=== PATIENT | female | born 1955 | race Caucasian/White ===

== ENCOUNTER 2022-07-10 03:50 | Inpatient (IN) | payer MEDICARE ==
[~2022-07-10] VITALS: Ht 157.5 cm; Wt 163.8 kg
[2022-07-10] VITALS (8 sets, daily range): BP systolic 81–118; BP diastolic 61–92
[2022-07-10] MEDS ORDERED: NYSTRIT TOP (11:01)
[2022-07-10] MEDS ORDERED: FURO80 PO (11:01)
[2022-07-10] MEDS ORDERED: METF500 PO (11:02)
[2022-07-10] MEDS ORDERED: ELIQUIS5 M2 PO (11:02)
[2022-07-10] MEDS ORDERED: SPIR25 PO (11:03)
[2022-07-10] MEDS ORDERED: DILT120ERA PO (11:03)
[2022-07-10] MEDS ORDERED: GLIM4 PO (11:04)
[2022-07-10] MEDS ORDERED: SOTO80 PO (11:04)
[2022-07-10] MEDS ORDERED: FURO40 PO (11:05)
[2022-07-10 13:55] LABS: Alanine Aminotransfer (ALT/SGP 21 U/L (12-78); Albumin, Blood 2.6 g/dL (3.4-5.0); Albumin/Globulin Ratio 0.7 (0.8-1.8); Alk Phos 135 U/L (50-136); Anion Gap Unable to Calculate mmol/L (6-16); Aspartate Aminotrans (AST/SGOT 16 U/L (12-37); Bilirubin, Total 2.8 mg/dL (0.1-1.0); Blood Urea Nitrogen 23 mg/dL (8-24); Bun/Creatinine Ratio 31.8 (12.0-20.0); Calcium, Blood 8.8 mg/dL (8.5-10.1); Chloride, Blood 85 mmol/L (98-108); Creatinine, Blood 0.72 mg/dL (0.40-1.00); Globulin, Blood 3.5 g/dL (2.2-4.0); Glomerular Filtration Rate 92 (60-); Glucose, Blood 252 mg/dL (70-99); Potassium, Blood 3.1 mmol/L (3.5-5.5); Sodium, Blood 131 mmol/L (136-145); Total Protein, Blood 6.1 g/dL (6.4-8.2)
[2022-07-10 13:57] LABS: CO2, Blood >45 mmol/L (21-32)
--- NOTE | 2022-07-10 15:01 | NUR ---
Patient direct admit from [facility]. Patient is AOx4, able to make needs known. Full body edema, pitting +2 BLE. Alvares placed by ER in [facility]. Patient is bedrest at this time, therapy met with patient & to get background info. Home med rec completed. Flomax given today for bladder spasms. Diabetic, controlled with oral medications. HR Afib, sustaining 140s, IV Lopressor given. Lab called critical Co2 of >45, reported to MD orders to get STAT VBGs, results pending. Vitals sytable, oxygen sats stable on 3l NC.
[2022-07-10 15:10] LABS: Base Excess Venous 24.5 mmol/L; Bicarbonate Venous 45.4 mmol/L (24.0-30.0); PCO2 Venous 62.5 mmHg (38-42); pH Blood Venous 7.49 (7.34-7.37)
--- NOTE | 2022-07-10 15:33 | NUR ---
1520 ASSUMED OF PATIENT. RN AT BEDSIDE PLACING POWERGLIDE
--- NOTE | 2022-07-10 16:51 | NUR ---
[address] [facility] WYMAN AND ORDERS RECEIVED FOR IV METOPROLOL. VS CHECKED PRIOR TO ADMINISTRATION AND NOTIFIED OF PATIENT BLOOD PRESSURE. ORDERS RECEIVED TO HOLD METOPROLOL AND TRANSFER TO PCU. PT REPORTS BLADDER SPASMS, PERKINS CATHETER CHECKED AND IS DRAINING PRISCILLA URINE
--- NOTE | 2022-07-10 17:35 | NUR ---
1730 to u 16 via bariatric bed accompanied by
--- NOTE | 2022-07-10 19:26 | NUR ---
TRANSFER SUMMARY: DAVID WAS TRANSFERRED TO PCU FROM MEDICAL FLOOR REPORT RECIEVED. PATIENT HAD INCREASED HR WITH RHYTHM OF AFIB WITH RVR, NOT CANIDATE FOR SOTALOL PER HOSPITALIST, PLEASE SEE NOTE. PATIENT STARTED ON CARDIZEM WITH INCREASE AFTER 15 MINUTES, PATIENT ARRIVED IN THE 150'S AND ENDING SHIFT IS 110'S -140'S. PATIENT ON BASELINE 2L VIA MASK, FOR COMFORT. PERKINS CATHETER CHANGED WITH STERILE TECHNIQUE. INSERTION WAS VERY TRAUMATIC AT [place] AND WAS A DIFFICULT INSERTION, WHICH LED THIS RN TO PLACE A CATHETER VERSUS PROTOCOL'D MULTIPLE STRAIGHT CATHS PATIENT WOULD RECIEVE MORE HARM THAN CAUSE, AND DUE TO GOLD BEACH AND PATIENT REPORT OF NO URINE OUTPUT OF SIGNIFICANCE IN 2 DAYS PRIOR PATIENT ENCOURAGED AND ENDORSED PREFERENCE OF PERKINS OVER MULTIPLE STRAIGHT CATHS. OBSERVED AND ENGANGED IN PLACEMENT WERE 2 OTHER HOUSEKEEPER CHILD CARE'S WITH SIMILAR THOUGHT AND PLAN OF ACTION. U/A SENT AT SHIFT END. PATIENT BLADDER SCAN WAS VERY DIFFICULT AND UNSURE OF AMOUNT OUT OF ALL SCANS ROUGHLY ESTIMATED OF 30-590 mL. POTENTIALLY FALSE REPORT, HOWEVER PATIENT HAS BEEN GIVEN THE LASIX, INCREASED URINE OUTPUT. CARDIZEM IS RUNNING AT 10 PATIENT DENIES CHEST PAIN PRESSURE OR SOB AT REST. SOME DYSPNEA WITH EXERTION, PAIN, ANXIETY. PATIENT AT BEDSIDE. BLAKE CARE PREFORMED MULTIPLE TIMES BEFORE AND AFTER INSERTION OF NEW PERKINS. CONCERNS AND QUESTIONS RELAYED TO NIGHT RN OF ELECTROLYTE REPLACEMENT AND THIS TREE SCOUT INFORMED LAB TO DELAY CHEM 8 UNTIL AFTER ALL K+ HAS BEEN GIVEN. WILL CONTINUE TO MONITOR UNTIL SHIFT CHANGE.
[2022-07-10 19:47] LABS: Source, Urine Foley catheter
[2022-07-10 19:54] LABS: Appearance, Urine Clear (Clear); Bilirubin, Urine Neg (Neg); Blood, Urine 4+ (Neg); Color, Urine Yellow (P-Yellow); Glucose Qualitative, Urine Neg (Neg); Ketones, Urine Neg (Neg); Leukocyte Esterase, Urine 1+ (Neg); Nitrite, Urine Neg (Neg); Protein, Urine 2+ (Neg); Urobilinogen, Urine 1+ (Normal)
[2022-07-10 20:04] LABS: Bacteria Many /hpf; Granular Casts 0-2 /lpf (0); Red Blood Cells, Urine 25-50 /hpf (0-2); Squamous Epithelial Cells Few /hpf (Few)
[2022-07-10 22:41] LABS: Bun/Creatinine Ratio 30.5 (12.0-20.0); Calcium, Blood 8.5 mg/dL (8.5-10.1); Creatinine, Blood 0.82 mg/dL (0.40-1.00); Potassium, Blood 3.5 mmol/L (3.5-5.5)
[2022-07-11 05:16] LABS: BASOPHILS ABSOLUTE AUTO 0.02 K/mm3 (0.00-0.23); BASOPHILS PERCENT AUTO 0 % (0-2); EOSINOPHILS ABSOLUTE AUTO 0.05 K/mm3 (0.00-0.68); EOSINOPHILS PERCENT AUTO 1 % (0-6); Hematocrit 34.1 % (33.0-51.0); Hemoglobin 10.6 g/dL (11.5-16.0); IMMATURE GRAN ABSOLUTE AUTO 0.04 K/mm3 (0.00-0.10); IMMATURE GRAN PERCENT AUTO 1 % (0-1); LYMPHOCYTES ABSOLUTE AUTO 1.79 K/mm3 (0.84-5.20); LYMPHOCYTES PERCENT AUTO 23 % (21-46); MONOCYTES ABSOLUTE AUTO 0.83 K/mm3 (0.16-1.47); MONOCYTES PERCENT AUTO 10 % (4-13); Mean Corpuscular HGB 29.9 pg (26.0-34.0); Mean Corpuscular HGB Conc 31.1 g/dL (31.5-36.5); Mean Corpuscular Volume 96 fL (80-100); Mean Platelet Volume 11.1 fL (9.1-12.4); NEUTROPHILS ABSOLUTE AUTO 5.22 K/mm3 (1.96-9.15); NEUTROPHILS PERCENT AUTO 66 % (41-73); NRBC ABSOLUTE 0.03 K/mm3 (0.00-0.02); NRBC Auto 0.4 /100 WBC (0.0-0.2); Platelet Count 208 K/mm3 (150-400); RDW Coefficient Variation 20.4 % (11.7-14.2); RDW Standard Deviation 71.3 fL (35.1-46.3); Red Blood Cell Count 3.55 M/mm3 (3.80-5.20); White Blood Cell Count 7.95 K/mm3 (4.00-11.30)
[2022-07-11 06:02] LABS: Bun/Creatinine Ratio 32.4 (12.0-20.0); Calcium, Blood 8.5 mg/dL (8.5-10.1); Creatinine, Blood 0.8 mg/dL (0.40-1.00); Potassium, Blood 3.3 mmol/L (3.5-5.5)
--- NOTE | 2022-07-11 06:55 | NUR ---
SHIFT SUMMARY PATIENT ALERT AND ORIENTED X4. HAD OCCASIONAL SHORTNESS OF BREATH WITH EXERTION. PATIENT ON 2 LITERS O2 WHILE AWAKE AND 4 WHILE SLEEPING TO MAINTAIN SPO2 >90%. PATIENT DENIES HAVING ANY CHEST PAIN. BLOOD PRESSURE STABLE. PATIENT CONTINUES ON CARDIZEM DRIP AT 10, HEART RATE NOW AVERAGING IN LOW 100'S. NO ACUTE ISSUES NOTED OVERNIGHT. WILL CONTINUE TO MONITOR. CALL LIGHT WTIHIN REACH.
[2022-07-11 07:30] VITALS: BP 116/89
[2022-07-11 11:34] VITALS: BP 100/72
--- NOTE | 2022-07-11 16:06 | NUR ---
SHIFT SUMMARY PATIENT ALERT AND ORIENTED. BEDREST DUE TO WEAKNESS, OBESITY, AND SEVERE GENERALIZED EDEMA. STARTED SHIFT ON 10 MG/HR DILTIAZEM GTT, TITRATED DOWN TO 5 MG/HR AT 0900, PO STARTED AT THAT TIME, SEE EMAR. GTT STOPPED AT 1200, HR SLOWLY TRENDED UP AGAIN TO 110-120. REQUIRING OXYGEN VIA MASK DUE TO MOUTH BRAETHING AT 3L. SPO2 IN MID 90S. CHEM BGS HIGH IN 200 AND 300S. LONG-ACTING STARTED THIS AM AND COVERED PER SHORT ACTING SLIDING SCALE. TOLERATING SMALL AMOUNT OF ADA DIET AND ORAL LIQUIDS. UP TO RECLINER WITH LIFT, WORKED WITH PT/OT ON EXERCISES IN CHAIR. ATTENTIVE AT BEDSIDE. EPRKINS PATENT AND DRAINING DARK RED URINE, PER REPORT PERKINS PLACEMENT FOR ACUTE RETENTION WAS TRAUMATIC. ECHO PENDING THIS AFTERNOON. REPORT GIVEN TO HUI OJYCE RN AT 1550.
[2022-07-11 17:59] VITALS: BP 97/74
[2022-07-11 21:20] VITALS: BP 104/83
[2022-07-11 23:10] VITALS: BP 101/87
[2022-07-12 03:32] VITALS: BP 93/79
[2022-07-12 04:14] LABS: Bun/Creatinine Ratio 34.1 (12.0-20.0); Calcium, Blood 8.6 mg/dL (8.5-10.1); Creatinine, Blood 0.88 mg/dL (0.40-1.00); Potassium, Blood 3.6 mmol/L (3.5-5.5)
--- NOTE | 2022-07-12 06:05 | NUR ---
SHIFT SUMMARY PATIENT ALERT AND ORIENTED X4. PATIENT ANXIOUS ABOUT HER CURRENT HOSPITAL COURSE AND HOW SHE PHYSICALLY FEELS. PATIENT REPORTS SHE GETS SHORT OF BREATH EASIER WITH MINIMAL EXERTION. EDEMA IS NOTED TO BE INCREASED IN ALL EXTREMITES. BLOOD PRESSURE STABLE. HEART RATE AVERAGING IN 110'S-120'S. SOME SLIGHT ST DEPRESSION NOTED ON TELEMETRY, PATIENT CONTINUES IN AFIB. WILL CONTINUE TO MONITOR. CALL LIGHT WITHIN REACH.
[2022-07-12 08:45] VITALS: BP 114/83
--- NOTE | 2022-07-12 09:52 | NUR ---
IV ON RIGHT WRIST WAS REMOVED. IT WAS NO LONGER PATENT. 22G CATHETER WAS INTACT. NO REDNESS, SWELLING, OR TENDERNESS NOTED.
[2022-07-12 11:59] VITALS: BP 84/54
--- NOTE | 2022-07-12 12:00 | NUR ---
Heart rate is elevated 120-140 while working with PT/OT. She is sitting up in recliner, RR 22 and on 3 l/min of oxygen, eating lunch. States that her breathing is a little harder after this morning's activity, but getting better. Blood pressure noted low; she received Toprol XL 50 mg this morning as well as diuretics. Urine output so far much improved; has put out 550 CC. Heart rate at rest, while eating is 127-133 bpm, atrial fibrillation.
[2022-07-12 12:17] VITALS: BP 90/64
--- NOTE | 2022-07-12 12:18 | NUR ---
Pt c/o cramping in her hands. STarted just after working with therapy this morning.
--- NOTE | 2022-07-12 12:23 | NUR ---
Call to Dr. Leung about pt's cramping in her hands, diuresis, and current change in vital signs.
[2022-07-12 14:56] VITALS: BP 129/115; BP 97/85
[2022-07-12 15:27] LABS: Bun/Creatinine Ratio 35.9 (12.0-20.0); Calcium, Blood 8.6 mg/dL (8.5-10.1); Creatinine, Blood 0.86 mg/dL (0.40-1.00); Potassium, Blood 3.3 mmol/L (3.5-5.5)
--- NOTE | 2022-07-12 18:06 | NUR ---
Repositioned using ceiling lift to center of bed, and up higher with HOB elevated for dinner. Pt is sitting up in bed, eating dinner. IV potassium and magnesium infusing via powerglide. Potassium infusion slowed and running concurrently with NS to decrease the pain at the side, which helped. Heart rate is 106-115 bpm, atrial fibrillation. Pt is eating slowly as she does get dyspneic with the activity. Spo2 93% on 3 l/min n.c. delivery. PT states that she uses 2 l/min of O2 at home, at all times. Very large amount of urine output via Alvares. Urine is very light clear yellow.
[2022-07-12 20:58] VITALS: BP 99/83
[2022-07-13] VITALS (10 sets, daily range): BP systolic 75–108; BP diastolic 62–90
--- NOTE | 2022-07-13 06:36 | NUR ---
SHIFT SUMMARY PATIENT ALERT AND ORIENTED X4. EDEMA IMPROVING, URINE OUTPUT GREATLY INCREASED WITH URINE NOW A PALE YELLOW. VITAL SIGNS STABLE, HEART RATE AFIB IN 90'S TO LOW 100'S, NO COMPLAINTS OF CHEST PAIN. PATIENT WAS ON 3 LITERS VIA NASAL CANULA OVERNIGHT. NO ACUTE ISSUES NOTED. CALL LIGHT WITHIN REACH.
[2022-07-13 06:45] LABS: Magnesium, Blood 1.8 mg/dL (1.6-2.4)
[2022-07-13 06:55] LABS: Anion Gap Unable to Calculate mmol/L (6-16); Blood Urea Nitrogen 30 mg/dL (8-24); Bun/Creatinine Ratio 36.1 (12.0-20.0); Calcium, Blood 8.8 mg/dL (8.5-10.1); Chloride, Blood 84 mmol/L (98-108); Creatinine, Blood 0.83 mg/dL (0.40-1.00); Glomerular Filtration Rate 77 (60-); Glucose, Blood 122 mg/dL (70-99); Potassium, Blood 2.9 mmol/L (3.5-5.5); Sodium, Blood 132 mmol/L (136-145)
[2022-07-13 06:57] LABS: CO2, Blood >45 mmol/L (21-32)
[2022-07-13 18:05] LABS: Hematocrit 35.3 % (33.0-51.0); Hemoglobin 11.1 g/dL (11.5-16.0)
[2022-07-13 18:24] LABS: Bun/Creatinine Ratio 37.2 (12.0-20.0); Calcium, Blood 8.5 mg/dL (8.5-10.1); Creatinine, Blood 0.78 mg/dL (0.40-1.00); Potassium, Blood 3.2 mmol/L (3.5-5.5)
--- NOTE | 2022-07-13 18:35 | NUR ---
PT SUMMARY: PT'S BP HAS BEEN SOFT 80-90'S WITH MAP STAYED ABOVE 70'S, HRR STIL AFIB AT 110'S TACHS UP TO 120'S WITH EXERTION, ON 2L OF O2 VIA NC SATS ABOVE 95%, AFEBRILE. PT ALERT AND ORIENTED X4, GETS ANXIOUS ESPECIALLY UPON WAKING UP OTHERWISE ABLE TO COMMUNICATE NEEDS AND COOPERATIVE WITH CARES. POTASSIUM WAS REPLACED WITH 60MEQ IV AND 40MEQ PO THIS MORNING REPEAT K CAME BACK 5.4 (POSS NOT ACCURATE DUE TO LINE DRAW 5 MINS AFTER POTASSIUM IV WAS DONE INFUSING) STARTED DIURETICS AT [address] WYMAN TO GIVE DIURETICS EVEN SBP WAS SOFT AT 90'S 30 MINS LATER SBP CONTINUED TO TREND DOWN TO 77 MAP STILL >70'S DR WYMAN AWARE ALSO LAB RESULT POTASSIUM CAME BACK 3.2 ORDER TO INFUSE 60MEQ IV POTASSIUM. PERKINS CATHETER PUT OUT 2500MLS YELLOW URINE OUTPUT FOR LEVON SHIFT, PT HAS BEEN UP IN THE RECLINER TWICE FOR THE SHIFT COMPLIANT WITH EXERCISES PER PT/OT. PT DENIES ANY PAIN HAS SOME DISCOMFORT THAT WAS RELIEVED WITH REPOSITIONING. POWERGLIDE DRESSING WAS CHANGED. PT FINISHING UP DINNER AT THE BEDSIDE. NO OTHER ISSUES AT THIS TIME, CALL LIGTHS IN REACH WILL REPORT TO ONCOMING SHIFT
[2022-07-14 02:58] VITALS: BP 96/75
[2022-07-14 06:07] LABS: Magnesium, Blood 1.9 mg/dL (1.6-2.4)
--- NOTE | 2022-07-14 06:09 | NUR ---
END OF SHIFT NO ISSUES OVERNIGHT, VSS, LABS PENDING
[2022-07-14 06:10] LABS: Blood Urea Nitrogen 30 mg/dL (8-24); Bun/Creatinine Ratio 37.5 (12.0-20.0); Calcium, Blood 8.7 mg/dL (8.5-10.1); Chloride, Blood 83 mmol/L (98-108); Glomerular Filtration Rate 81 (60-); Glucose, Blood 132 mg/dL (70-99); Potassium, Blood 2.5 mmol/L (3.5-5.5); Sodium, Blood 130 mmol/L (136-145)
[2022-07-14 06:12] LABS: Anion Gap Unable to Calculate mmol/L (6-16)
[2022-07-14 06:14] LABS: CO2, Blood >45 mmol/L (21-32)
--- NOTE | 2022-07-14 07:15 | NUR ---
ASSUMED CARE: PT AWAKE AND RESTING IN BED. 2L O2 VIA NC. HR AFIB 100S. CALL LIGHT IN REACH. NO FURTHER NEEDS AT THIS TIME.
[2022-07-14 07:44] VITALS: BP 90/62
[2022-07-14 11:26] VITALS: BP 121/92
[2022-07-14 14:59] VITALS: BP 120/83
--- NOTE | 2022-07-14 17:37 | NUR ---
SHIFT SUMMARY: PT A&OX4 THROUGHOUT SHIFT. SYSTOLIC BP MOSTLY 120'S. HR MOSTLY 100-110'S. AFIB RHYTHM. O2 SATS >90% ON 3L VIA NC. PERKINS CATHETER IN PLACE DRAINING YELLOW URINE. PT UP TO CHAIR AROUND LUNCH. REMAINED ON POTASSIUM DRIP THROUGHOUT SHIFT AND CURRENTLY STILL INFUSING. AT BEDSIDE SOME THROUGHOUT THE DAY. CURRENTLY IN CHAIR EATING DINNER. NO FURTHER NEEDS OR CONCERNS AT THIS TIME.
[2022-07-14 20:10] LABS: Anion Gap Unable to Calculate mmol/L (6-16); Blood Urea Nitrogen 28 mg/dL (8-24); Bun/Creatinine Ratio 33.8 (12.0-20.0); Calcium, Blood 8.8 mg/dL (8.5-10.1); Chloride, Blood 83 mmol/L (98-108); Creatinine, Blood 0.83 mg/dL (0.40-1.00); Glomerular Filtration Rate 77 (60-); Glucose, Blood 139 mg/dL (70-99); Potassium, Blood 3.1 mmol/L (3.5-5.5); Sodium, Blood 132 mmol/L (136-145)
[2022-07-14 20:11] LABS: CO2, Blood >45 mmol/L (21-32)
[2022-07-14 21:40] VITALS: BP 130/86
[2022-07-14 23:59] VITALS: BP 118/82
[2022-07-15 03:57] LABS: BASOPHILS ABSOLUTE AUTO 0.05 K/mm3 (0.00-0.23); BASOPHILS PERCENT AUTO 1 % (0-2); EOSINOPHILS ABSOLUTE AUTO 0.09 K/mm3 (0.00-0.68); EOSINOPHILS PERCENT AUTO 1 % (0-6); Hematocrit 34.7 % (33.0-51.0); Hemoglobin 10.8 g/dL (11.5-16.0); IMMATURE GRAN ABSOLUTE AUTO 0.03 K/mm3 (0.00-0.10); IMMATURE GRAN PERCENT AUTO 1 % (0-1); LYMPHOCYTES ABSOLUTE AUTO 1.62 K/mm3 (0.84-5.20); LYMPHOCYTES PERCENT AUTO 25 % (21-46); MONOCYTES ABSOLUTE AUTO 0.86 K/mm3 (0.16-1.47); MONOCYTES PERCENT AUTO 13 % (4-13); Mean Corpuscular HGB 30.3 pg (26.0-34.0); Mean Corpuscular HGB Conc 31.1 g/dL (31.5-36.5); Mean Corpuscular Volume 97 fL (80-100); Mean Platelet Volume 10.6 fL (9.1-12.4); NEUTROPHILS ABSOLUTE AUTO 3.97 K/mm3 (1.96-9.15); NEUTROPHILS PERCENT AUTO 60 % (41-73); Platelet Count 231 K/mm3 (150-400); RDW Coefficient Variation 19.6 % (11.7-14.2); RDW Standard Deviation 69.9 fL (35.1-46.3); Red Blood Cell Count 3.57 M/mm3 (3.80-5.20); White Blood Cell Count 6.62 K/mm3 (4.00-11.30)
[2022-07-15 04:25] LABS: Albumin, Blood 2.4 g/dL (3.4-5.0); Albumin/Globulin Ratio 0.7 (0.8-1.8); Bilirubin, Total 1.6 mg/dL (0.1-1.0); Bun/Creatinine Ratio 35.1 (12.0-20.0); Calcium, Blood 8.5 mg/dL (8.5-10.1); Creatinine, Blood 0.74 mg/dL (0.40-1.00); Globulin, Blood 3.4 g/dL (2.2-4.0); Magnesium, Blood 1.9 mg/dL (1.6-2.4); Phosphorus, Blood 2.9 mg/dL (2.5-4.9); Potassium, Blood 3.1 mmol/L (3.5-5.5); Total Protein, Blood 5.8 g/dL (6.4-8.2)
[2022-07-15 05:19] VITALS: BP 122/86
[2022-07-15 07:56] LABS: Digoxin (Lanoxin) 1.53 ug/mL (0.80-2.00)
[2022-07-15 08:04] VITALS: BP 105/70
[2022-07-15 11:10] LABS: Anion Gap Unable to Calculate mmol/L (6-16); Blood Urea Nitrogen 23 mg/dL (8-24); Bun/Creatinine Ratio 33.4 (12.0-20.0); CO2, Blood >45 mmol/L (21-32); Calcium, Blood 8.3 mg/dL (8.5-10.1); Chloride, Blood 86 mmol/L (98-108); Creatinine, Blood 0.69 mg/dL (0.40-1.00); Glomerular Filtration Rate 95 (60-); Glucose, Blood 139 mg/dL (70-99); Potassium, Blood 3.3 mmol/L (3.5-5.5); Sodium, Blood 131 mmol/L (136-145)
[2022-07-15 12:17] VITALS: BP 91/68
[2022-07-15 15:32] VITALS: BP 87/67
--- NOTE | 2022-07-15 16:26 | NUR ---
SHIFT SUMMARY ALERT AND ORIENTED. POTASSIUM LOW, REPLACED WITH PO. PLAN IS TO RESTART DIURETIC ONCE POTASSIUM IS STABLE. SPO2 STABLE ON 3L VIA NC. ACHS CHECKS STABLE, TOLERATING ADA DIET AND LIQUIDS. BED BATH DONE, UP TO RECLINER WITH LIFT, STOOD SEVERAL TIMES WITH PT. PERKINS PATENT AND DRAINING. CPAP SET UP FOR TONIGHT BY RT. MODERATE MUSCULOSKELETAL PAIN IN LEGS, ACETAMINOPHEN STARTED. TELE AFIB 70S TO 90S. ATTENTIVE IN ROOM. DIFFICULTY WITH PILLS, BEST CRUSHED IN APPLESAUCE. PERKINS PATENT AND DRAINING.
[2022-07-15 16:28] LABS: Bun/Creatinine Ratio 34.2 (12.0-20.0); Calcium, Blood 8.6 mg/dL (8.5-10.1); Creatinine, Blood 0.67 mg/dL (0.40-1.00); Potassium, Blood 3.6 mmol/L (3.5-5.5)
[2022-07-15 19:38] VITALS: BP 98/61
[2022-07-16] VITALS (7 sets, daily range): BP systolic 83–108; BP diastolic 57–74
[2022-07-16 04:31] LABS: Hematocrit 34.1 % (33.0-51.0); Hemoglobin 10.9 g/dL (11.5-16.0); Mean Corpuscular HGB 30.1 pg (26.0-34.0); Mean Corpuscular Volume 94 fL (80-100); Mean Platelet Volume 10.9 fL (9.1-12.4); Platelet Count 234 K/mm3 (150-400); RDW Coefficient Variation 19.2 % (11.7-14.2); RDW Standard Deviation 66.6 fL (35.1-46.3); Red Blood Cell Count 3.62 M/mm3 (3.80-5.20); White Blood Cell Count 7.06 K/mm3 (4.00-11.30)
[2022-07-16 04:44] LABS: Magnesium, Blood 1.7 mg/dL (1.6-2.4)
[2022-07-16 05:13] LABS: Alanine Aminotransfer (ALT/SGP 16 U/L (12-78); Albumin, Blood 2.2 g/dL (3.4-5.0); Albumin/Globulin Ratio 0.6 (0.8-1.8); Alk Phos 129 U/L (50-136); Aspartate Aminotrans (AST/SGOT 22 U/L (12-37); Bilirubin, Total 1.5 mg/dL (0.1-1.0); Blood Urea Nitrogen 21 mg/dL (8-24); Bun/Creatinine Ratio 29.8 (12.0-20.0); Calcium, Blood 8.5 mg/dL (8.5-10.1); Chloride, Blood 86 mmol/L (98-108); Globulin, Blood 3.4 g/dL (2.2-4.0); Glomerular Filtration Rate 95 (60-); Glucose, Blood 103 mg/dL (70-99); Phosphorus, Blood 3.2 mg/dL (2.5-4.9); Sodium, Blood 132 mmol/L (136-145); Total Protein, Blood 5.6 g/dL (6.4-8.2)
[2022-07-16 05:14] LABS: Anion Gap Unable to Calculate mmol/L (6-16); CO2, Blood >45 mmol/L (21-32)
--- NOTE | 2022-07-16 05:55 | NUR ---
SHIFT SUMMARY: At the beginning of the shift, patient was up to the recliner and declined repositioning. We got her back to bed using the lift/sling at around 2100. Pt became extremely anxious and it was difficult to get her comfortable. She complains of bilateral leg pain, worse on the right. Medicated with tylenol which relieved symptoms. Pt eventually went to sleep and slept most of the night. Had a BM, Copious urine output. Refused to wear CPAP due to claustrophobia. CO2 on AM labs was >45 and K was 3.0. Dr. Garrett notified and orders for KCL received.
--- NOTE | 2022-07-16 09:52 | NUR ---
PERKINS was clamped one hour ago for bladder training.
--- NOTE | 2022-07-16 11:00 | NUR ---
Pt said that she felt the urge to void. Alvares unclamped, draining urine.
[2022-07-16 13:57] LABS: Anion Gap Unable to Calculate mmol/L (6-16); Blood Urea Nitrogen 19 mg/dL (8-24); Bun/Creatinine Ratio 27.2 (12.0-20.0); CO2, Blood >45 mmol/L (21-32); Calcium, Blood 8.8 mg/dL (8.5-10.1); Chloride, Blood 84 mmol/L (98-108); Glomerular Filtration Rate 95 (60-); Glucose, Blood 152 mg/dL (70-99); Sodium, Blood 134 mmol/L (136-145)
--- NOTE | 2022-07-16 14:08 | NUR ---
BLADDER training is still in progress. Pt is sitting up in chair, ate her lunch, and is now napping. Urine output continue to be good.
--- NOTE | 2022-07-16 15:33 | NUR ---
Pt resting in recliner chair upon arrival. Pt is A&OX4. Pt receiving bladder training during visit with Alvares clamped. Pt intermittently experiencing bladder spasms from Alvares being clamped. Pt calls for Primary RN to release clamp. Listened as Pt reports living in [place] stating she recently moved up from [place]. She reports living with her and son. She also reports having a daughter who lives very close by. Engaged in therpaeutic conversation regarding advanced care planning. Educated on disease process including trajectory. Discussed the importance of planning for the future and having routine conversations with PCP as disease progresses. Pt reports in the process of looking for PCP. Discussed code status, educated on life sustaining treatments including risks and implications to CPR/Intubation. Pt reports her wishes are Full Code and reports she will re-evaluate her wishes as her chronic conditions changes. Pt expresses appreciation and reports no new concerns at this time. Palliative Care will remain available
--- NOTE | 2022-07-16 18:42 | NUR ---
TRANSFER NOTE BEDSIDE REPORT FROM HUI BEARDEN RN IN PCU ROOM 1. ARRIVED TO MEDICAL FLOOR ROOM 335 ON BARIATRIC BED. ALERT AND ORIENTED. PERKINS HAD JUST BEEN DC'D AFTER BLADDER TRAINING, PUREWICK IN PLACE. PATIENT CONTINUED TO EXPERIENCE SOME BLADDER SPASMS. SPO2 LOW 90S ON 2L O2 VIA NC. SOFT BLOOD PRESSURE, SYSTOLIC IN 90S. TOLERATING [facility] SOFT DIET, THIN LIQUIDS, AND PILLS CRUSHED IN APPLESAUCE. PATIENT WAS WET ON BED AND PUREWICK WAS NOT DRAINING. LINENS CHANGED, ABSORBENT PAD PLACED UNDER PATIENT, SUCTION LINE CLEARED, NEW PUREWICK PLACED. SPOUSE PRESENT IN ROOM, OOD EMOTIONAL SUPPORT FOR PATIENT. PLAN TO CONTINUE DIURESING. ONCE LABS STABLE PLAN FOR SNF DC. PATIENT LIVES ON [facility] IN [place], [place]. TELE IS AFIB 90S.
[2022-07-16 19:23] LABS: Anion Gap Unable to Calculate mmol/L (6-16); Blood Urea Nitrogen 19 mg/dL (8-24); Bun/Creatinine Ratio 25.5 (12.0-20.0); Chloride, Blood 85 mmol/L (98-108); Creatinine, Blood 0.75 mg/dL (0.40-1.00); Glomerular Filtration Rate 87 (60-); Glucose, Blood 128 mg/dL (70-99); Potassium, Blood 3.5 mmol/L (3.5-5.5); Sodium, Blood 134 mmol/L (136-145)
[2022-07-16 19:27] LABS: CO2, Blood >45 mmol/L (21-32)
[2022-07-17 05:27] LABS: Magnesium, Blood 1.8 mg/dL (1.6-2.4)
--- NOTE | 2022-07-17 05:36 | NUR ---
Summary: No acute events overnight. Patient aox4. VSS. Max assist two person to reposition. Patient in bariatric air mattress bed. On 2-5L NC. Gave PRN for anxiety but patient still refused to wear CPAP. Placed on patient about three times. She removed it each time. Very pleasant with staff cooperative with all other care. Monitored on cont pulse ox and tele.
[2022-07-17 05:41] LABS: Anion Gap Unable to Calculate mmol/L (6-16); Blood Urea Nitrogen 17 mg/dL (8-24); Bun/Creatinine Ratio 24.7 (12.0-20.0); Calcium, Blood 8.7 mg/dL (8.5-10.1); Chloride, Blood 87 mmol/L (98-108); Creatinine, Blood 0.69 mg/dL (0.40-1.00); Glomerular Filtration Rate 95 (60-); Glucose, Blood 100 mg/dL (70-99); Sodium, Blood 132 mmol/L (136-145)
[2022-07-17 05:43] LABS: CO2, Blood >45 mmol/L (21-32)
[2022-07-17 07:35] VITALS: BP 97/68
[2022-07-17 16:24] LABS: Anion Gap Unable to Calculate mmol/L (6-16); Blood Urea Nitrogen 17 mg/dL (8-24); Bun/Creatinine Ratio 24.4 (12.0-20.0); Calcium, Blood 9.1 mg/dL (8.5-10.1); Chloride, Blood 87 mmol/L (98-108); Glomerular Filtration Rate 95 (60-); Glucose, Blood 176 mg/dL (70-99); Potassium, Blood 3.6 mmol/L (3.5-5.5); Sodium, Blood 134 mmol/L (136-145)
[2022-07-17 16:26] LABS: CO2, Blood >45 mmol/L (21-32)
[2022-07-17 17:14] VITALS: BP 88/68
--- NOTE | 2022-07-17 18:17 | NUR ---
DAYSHIFT SUMMARY No acute changes to patient status, IV magnesium infused this am. 3x doses of Potassium PO adminsitred today. Plan is to restart diuresis schedule, now that Potassium is WNL. Alvares placed for comfort, patent draining to gravity. Patient OOB sitting in recliner most of the day. Worked with BILINGUAL RESEARCH INTERVIEWER & PT. Patient able to stand up from chair w/ FWW. No other concerns at this time, awaiting placement.
[2022-07-17 19:42] VITALS: BP 98/77
--- NOTE | 2022-07-17 22:43 | NUR ---
RN TO DIRECTOR LOAN. REPORT TAKEN FROM JAMIE MARTINEZ.
--- NOTE | 2022-07-18 05:09 | NUR ---
SHIFT SUMMARY PATIENT HAD NO ACUTE CHANGES. AXOX 4 AND BEDREST/LIFT PATIENT. POWERGLIDE PRANAY INTACT. ON TELEMETRY AFIB 80'S. ON 3.5 L O2 NC AND 2L BASELINE. REFUSED CPAP. PERKINS PATENT AND DRAINING TO GRAVITY. DENIES CHEST PAIN AND N/V. CBG 111. CALL LIGHT IN REACH. BED IN LOWEST POSITION. WILL CONTINUE TO MONITOR UNTIL DAY SHIFT NURSE ASSUMES CARE.
[2022-07-18 05:43] LABS: Magnesium, Blood 1.9 mg/dL (1.6-2.4)
[2022-07-18 05:47] LABS: Anion Gap Unable to Calculate mmol/L (6-16); Blood Urea Nitrogen 15 mg/dL (8-24); Bun/Creatinine Ratio 22.8 (12.0-20.0); Calcium, Blood 9.1 mg/dL (8.5-10.1); Chloride, Blood 90 mmol/L (98-108); Creatinine, Blood 0.66 mg/dL (0.40-1.00); Glomerular Filtration Rate 96 (60-); Glucose, Blood 84 mg/dL (70-99); Potassium, Blood 3.3 mmol/L (3.5-5.5); Sodium, Blood 136 mmol/L (136-145)
[2022-07-18 05:49] LABS: CO2, Blood >45 mmol/L (21-32)
[2022-07-18 07:27] VITALS: BP 97/70
[2022-07-18 11:00] VITALS: BP 101/65
[2022-07-18 13:33] LABS: SARS-Cov-2 (COVID-19) PCR, MMC Negative (NEGATIVE)
[2022-07-18 14:29] LABS: Blood Urea Nitrogen 16 mg/dL (8-24); Bun/Creatinine Ratio 25.2 (12.0-20.0); Calcium, Blood 9.5 mg/dL (8.5-10.1); Chloride, Blood 89 mmol/L (98-108); Creatinine, Blood 0.64 mg/dL (0.40-1.00); Glomerular Filtration Rate 97 (60-); Glucose, Blood 175 mg/dL (70-99); Sodium, Blood 134 mmol/L (136-145)
[2022-07-18 14:30] LABS: Anion Gap Unable to Calculate mmol/L (6-16)
[2022-07-18 14:31] LABS: CO2, Blood >45 mmol/L (21-32)
[2022-07-18 16:46] VITALS: BP 105/70
[2022-07-18 21:49] VITALS: BP 108/83
--- NOTE | 2022-07-19 04:19 | NUR ---
SHIFT SUMMARY PATIENT HAD NO ACUTE CHANGES. AXOX 4 AND BEDREST/LIFT. PERKINS PATENT AND DRAINING TO GRAVITY. ON 5L O2 NC AND 2L BASELINE. POWERGLIDE PRANAY INTACT. CBG 143. TELE MONITOR AFIB 88. SPOUSE PRESENT MOST OF THE SHIFT. DENIES CHEST PAIN, SOB, AND N/V. ANXIOUS AT TIMES WITH REPOSITIONING. CALL LIGHT IN REACH. BED IN LOWEST POSITION. WILL CONTINUE TO MONITOR UNTIL DAY SHIFT NURSE ASSUMES CARE.
[2022-07-19 05:10] VITALS: BP 89/58
[2022-07-19 05:59] LABS: Bun/Creatinine Ratio 24.9 (12.0-20.0); Creatinine, Blood 0.64 mg/dL (0.40-1.00); Magnesium, Blood 1.9 mg/dL (1.6-2.4); Potassium, Blood 3.2 mmol/L (3.5-5.5)
[2022-07-19 07:29] VITALS: BP 91/60
[2022-07-19] MEDS ORDERED: LISI5 PO (10:58)
[2022-07-19] MEDS ORDERED: JARDIANCE10 MG PO (10:58)
[2022-07-19] MEDS ORDERED: METO50ER PO (10:58)
[2022-07-19] MEDS ORDERED: FURO40 PO (10:59)
[2022-07-19] MEDS ORDERED: POTA10T PO (11:03)
--- NOTE | 2022-07-19 12:51 | NUR ---
NOTES/DISCHARGE SUMMARY: PATIENT A&OX4. CALM, PLEASANT AND COOPERATIVE c CARE. USES CALL LIGHT APPROPRIATELY AND ABLE TO MAKE NEEDS KNOWN. PATIENT DENIES CP/PRESSURE, N/V. ON TELE, AFIB HR OF 104 BPM c PVC, PER DIRECTOR OF STRATEGY & MOBILE, KAYLAN DUKES. PATIENT ON O2 5L VIA NC c SPO2 RANGES 91-92%. PATIENT HAS PERKINS FOR RETENTION. PERKINS PATENT DRAINING YELLOW URINE TO GRAVITY. RECEIVED SCHEDULED MEDS PER EMAR. VITAL SIGNS REVIEWED. PATIENT WORK c PT/OT MOBILITY IN BED THIS AM, TOLERATED WELL. POWERGLIDE TO PRANAY WAS DC'D. PATIENT DISCHARGED TO [facility] IN [place]. REPORT GIVEN TO NURSE CARLENE AT AROUND 1221. DISCHARGE PACKET GIVEN TO [employer] PERSONNEL. DISCHARGE INSTRUCTION PACKET GIVEN TO PATIENT PATIENT STATED UNDERSTANDING AND NO FURTHER QUESTIONS. DISCHARGE INSTRUCTION PACKET WAS FAXED TO THE FACILITY PER REQUEST. PATIENT LEFT THE ROOM AT AROUND 1244. PATIENT WAS TRANSPORTED VIA GURNEY BY [employer] PERSONNEL. ALL PATIENT BELONGINGS WERE SENT HOME c THE PATIENT INCLUDING PORTABLE O2 DELIVERED BY [facility] [place].
== END 2022-07-19 12:44 | DRG 291 ==
LOC: MEDS 03:50 → PCU 10:58 → MEDS 10:58 → PCU 17:31 → MEDS 07-16 16:17
PROVIDERS: Family Medicine; Hospitalist; Internal Medicine; Student in an Organized Health Care Education/Training Program; ADMIT Internal Medicine
PROC: 0T9B70Z Drainage of Bladder with Drainage Device, Via Natural or Artificial Opening (ICD-10-PCS; principal; 2022-07-10)
DX: I50.23 Acute on chronic systolic (congestive) heart failure (principal); J96.21 Acute and chronic respiratory failure with hypoxia; J96.22 Acute and chronic respiratory failure with hypercapnia; I42.8 Other cardiomyopathies; E66.2 Morbid (severe) obesity with alveolar hypoventilation; Z68.44 Body mass index [BMI] 60.0-69.9, adult; Z91.148 Patient's other noncompliance with medication regimen for other reason; I48.91 Unspecified atrial fibrillation; E87.6 Hypokalemia; E83.42 Hypomagnesemia; R33.9 Retention of urine, unspecified; Z20.822 Contact with and (suspected) exposure to COVID-19; E11.9 Type 2 diabetes mellitus without complications; J44.9 Chronic obstructive pulmonary disease, unspecified; Z71.89 Other specified counseling; Z99.81 Dependence on supplemental oxygen; Z79.01 Long term (current) use of anticoagulants; Z88.0 Allergy status to penicillin; Z79.84 Long term (current) use of oral hypoglycemic drugs; Z79.899 Other long term (current) drug therapy
CPT/HCPCS: 36415; 71045; 80048; 80053; 80162; 81001; 82803; 82947; 83036; 83605; 83735; 83880; 84100; 84132; 84484; 85014; 85018; 85025; 85027; 87086; 92526; 92610; 93005; 93010; 94640; 94660; 94664; 94760; 94762; 97110; 97110-CQ; 97162; 97166; 97530; 97535; A9270; C8929; J1160; J1815; J1940; J3475; J3480; J7040; J7050; Q9957; U0004